=== PATIENT | male | born 1980 | race Caucasian/White ===

== ENCOUNTER 2017-09-22 06:01 | Day surgery (SDC) | payer BC ==
[~2017-09-22 06:01] MED LIST: Dextrose 5%-0.45% NaCl 1,000 ML IV SCH; Sodium Chloride 0.9% 10 ML Syringe FLUSH PRN
[2017-09-22] MEDS ORDERED: fentaNYL 100 MCG/2 ML SDV IV ONE ×3 (06:02→06:58)
[2017-09-22] MEDS ORDERED: Midazolam 1 MG/ML 2 ML SDV IV ONE ×7 (06:02→07:04)
[2017-09-22] MEDS ORDERED: fentaNYL 100 MCG/2 ML SDV ONE (06:13)
[2017-09-22] MEDS ORDERED: Midazolam 1 MG/ML 2 ML SDV ONE (06:13)
[2017-09-22 09:36] VITALS: BP 117/66
--- NOTE | 2017-09-22 13:10 | OR ---
DATE: 09/22/2017 PROCEDURE: Total colonoscopy. INSTRUMENT USED: CF-H180AL Olympus video colonoscope. PREMEDICATIONS: Fentanyl 100 mcg intravenous, Versed 4 mg intravenous. Nasal O2 cannula. The procedure was done under pulse oximetry, BP recording, and biomedical engineering supervisor. INDICATION: The patient with persistent lower abdominal pain, unexplained, and not responsive to medical measures. Recent CT of the abdomen shows normal rectal wall. Colonoscopic examination is done for detection of any polypoid lesions and removal, endoscopic hemostasis therapy if needed. DESCRIPTION OF PROCEDURE: Initial rectal exam was unremarkable. Rigid anoscopy was normal. The colonoscope was passed with ease up to the ileocecal area, photographs taken of the normal-appearing cecum, identified by landmarks of appendiceal orifice and double-bulged ileocecal folds. No bleeding was noted from any of the visualized areas at the commencement of the examination. No stricture. No vascular ectasia. No large isolated ulcerations seen. No evidence of diffuse inflammatory bowel disease in the form of friability, contact bleeding, or ulcerations. No polypoid tumor mass identified. Probing the proximal sides of folds and flexures, using adequate distention and clearing up the stool material, withdrawal of the scope was made, cecum to rectum time over 6 minutes. No bleeding was noted from any of the visualized areas at the completion of examination. IMPRESSION: Normal study. The patient tolerated the procedure well. [facility] /[id number]
== END 2017-09-22 09:25 | disposition home or self-care (01) ==
LOC: DL.ENDO 06:01
PROVIDERS: ATTEND Internal Medicine Gastroenterology
DX: R10.30 Lower abdominal pain, unspecified (principal); K21.9 Gastro-esophageal reflux disease without esophagitis; F41.1 Generalized anxiety disorder
CPT/HCPCS: 45378; J2250; J3010; J7042

== ENCOUNTER 2018-05-06 10:34 | Emergency (ER) | payer BC ==
[2018-05-06 10:45] VITALS: BP 120/86
[2018-05-06] MEDS ORDERED: Sodium Chloride 0.9% 10 ML Syringe FLUSH PRN (10:55)
[2018-05-06] MEDS ORDERED: Sodium Chloride 0.9% 1,000 ML IV ONE (11:11)
[2018-05-06 11:33] LABS: ANION GAP 14.6; CHLORIDE,CL 100 mmol/L (101-111); SODIUM,NA 137 mmol/L (135-145)
[2018-05-06] MEDS ORDERED: Iopamidol 612 MG/ML 75 ML Bottle IVPUSH ONE (12:11)
[2018-05-06] MEDS ORDERED: Dicyclomine 10 MG Cap PO ONE (12:25)
--- NOTE | 2018-05-06 14:06 | EDM.PDOC ---
ED HPI GENERAL MEDICAL PROBLEM - General Chief Complaint: Abdominal Pain Stated Complaint: ABD PAINS,FEVER [id number] Time Seen by Provider: 05/06/18 11:02 Source of Information: Reports: Patient, RN, RN Notes Reviewed History Limitations: Reports: No Limitations - History of Present Illness INITIAL COMMENTS - FREE TEXT/NARRATIVE: Patient presents to ER with complaint of fever and chills that began evening. Monday night IBS flared up. He has had diarrhea q 1 hour since Monday night. He still has appendix and gallbladder. He has had body ache, fever, chills, nausea and diarrhea. No vomiting, cough or sore throat. Onset Date: 05/03/18 Duration: Getting Worse Location: Reports: Abdomen Quality: Reports: Ache Severity: Moderate Improves with: Reports: None Worsens with: Reports: None Associated Symptoms: Reports: No Other Symptoms Abdominal Pain Score (Numeric/FACES): 4 - Related Data Allergies Allergy/AdvReac Type Severity Reaction Status Date / Time No Known Allergies Allergy Verified 05/06/18 10:39 Home Meds: Home Meds Omeprazole 1 tab PO BID 05/28/15 [History] Multivitamin [Daily Zak] 1 tab PO DAILY 09/20/17 [History] Past Medical History HEENT History: Reports: None Cardiovascular History: Reports: Syncope Other Cardiovascular History: has a heart chip monitor in place Respiratory History: Reports: None Gastrointestinal History: Reports: Chronic Diarrhea, Irritable Bowel Syndrome Genitourinary History: Reports: None Musculoskeletal History: Reports: None Neurological History: Reports: None Psychiatric History: Reports: Depression Endocrine/Metabolic History: Reports: None Hematologic History: Reports: Iron Deficiency Immunologic History: Reports: None Oncologic (Cancer) History: Reports: None Dermatologic History: Reports: None - Infectious Disease History Infectious Disease History: Reports: Chicken Pox - Past Surgical History GI Surgical History: Reports: Colonoscopy Musculoskeletal Surgical History: Reports: None Social & Family History - Family History Family Medical History: Noncontributory - Tobacco Use Smoking Status *Q: Never Smoker - Caffeine Use Caffeine Use: Reports: Energy Drinks Other Caffeine Use: occasional - Recreational Drug Use Recreational Drug Use: No ED ROS GENERAL - Review of Systems Review Of Systems: ROS reveals no pertinent complaints other than HPI. ED EXAM, GI/ABD - Physical Exam Exam: See Below Exam Limited By: No Limitations General Appearance: Alert, WD/WN, No Apparent Distress Eyes: Bilateral: Normal Appearance Ears: Normal External Exam, Normal Canal, Hearing Grossly Normal, Normal TMs Nose: Normal Inspection, Normal Mucosa, No Blood Throat/Mouth: Normal Inspection, Normal Lips, Normal Teeth, Normal Gums, Normal Oropharynx, Normal Voice, No Airway Compromise Head: Atraumatic, Normocephalic Neck: Normal Inspection, Supple, Non-Tender, Full Range of Motion Respiratory/Chest: No Respiratory Distress, Lungs Clear, Normal Breath Sounds, No Accessory Muscle Use, Chest Non-Tender Cardiovascular: Bradycardia GI/Abdominal Exam: Other (tender right lower quadrant and left lower quadrant) (Male) Exam: Deferred Rectal (Males) Exam: Deferred Back Exam: Normal Inspection, Full Range of Motion, NT Extremities: Normal Inspection, Normal Range of Motion, Non-Tender, Normal Capillary Refill, No Pedal Edema Neurological: Alert, Oriented, CN II-XII Intact, Normal Cognition, Normal Gait, Normal Reflexes, No Motor/Sensory Deficits Psychiatric: Normal Affect, Normal Mood Skin Exam: Warm, Dry, Intact, Normal Color, No Rash Lymphatic: No Adenopathy Course - Vital Signs Last Recorded V/S: Last Vital Signs Temp 97.6 F 05/06/18 10:44 Pulse 86 05/06/18 10:44 Resp 14 05/06/18 10:44 BP 120/86 05/06/18 10:44 Pulse Ox 98 05/06/18 10:44 - Orders/Labs/Meds Labs: Laboratory Tests 05/06/18 05/06/18 05/06/18 Range/Units 11:00 11:03 11:03 WBC 5.1 (5.0-10.0) 10^3/uL RBC 4.85 (4.6-6.2) 10^6/uL Hgb 14.9 (14.0-18.0) g/dL Hct 42.2 (40.0-54.0) % MCV 87.0 (80-100) fL MCH 30.7 (27.0-34.0) pg MCHC 35.3 H (33.0-35.0) g/dL Plt Count 190 (150-450) 10^3/uL Neut % (Auto) 70.1 (42.2-75.2) % Lymph % (Auto) 17.4 L (20.5-50.1) % King % (Auto) 12.1 H (2-8) % Eos % (Auto) 0.2 L (1.0-3.0) % Baso % (Auto) 0.2 (0.0-1.0) % Sodium 137 (135-145) mmol/L Potassium 3.6 (3.6-5.0) mmol/L Chloride 100 L (101-111) mmol/L Carbon Dioxide 26.0 (21.0-31.0) mmol/L Anion Gap 14.6 BUN 12 (7-18) mg/dL Creatinine 1.1 (0.6-1.3) mg/dL Est Cr Clr Drug Dosing 91.95 mL/min Estimated GFR (MDRD) > 60 BUN/Creatinine Ratio 10.90 Glucose 109 H (74-105) mg/dL Lactic Acid (0.5-2.2) mmol/L Calcium 9.3 (8.4-10.2) mg/dl Total Bilirubin 0.7 (0.2-1.0) mg/dL AST 35 (10-42) IU/L ALT 38 (10-60) IU/L Alkaline Phosphatase 44 (42-121) IU/L Total Protein 8.1 (6.7-8.2) g/dl Albumin 4.1 (3.2-5.5) g/dl Globulin 4.0 Albumin/Globulin Ratio 1.03 Amylase 75 (28-100) U/L Lipase 24 (22-51) U/L Urine Color Yellow (YELLOW) Urine Appearance Clear (CLEAR) Urine pH 6.0 (5.0-9.0) Ur Specific [place] >= 1.030 (1.005-1.030) Urine Protein 100 H (NEGATIVE) Urine Glucose (UA) Negative (NEGATIVE) Urine Ketones Trace H (NEGATIVE) Urine Occult Blood Moderate H (NEGATIVE) Urine Nitrite Negative (NEGATIVE) Urine Bilirubin Small H (NEGATIVE) Urine Urobilinogen 0.2 (0.2-1.0) mg/dL Ur Leukocyte Esterase Negative (NEGATIVE) Urine RBC 0-5 /HPF Urine WBC 0-5 (0-5/HPF) /HPF Ur Epithelial Cells Rare /HPF Urine Bacteria Few (0-FEW/HPF) /HPF Hyaline Casts Few H /LPF Granular Casts Few /LPF Urine Mucus Moderate H /LPF Urine Other 05/06/18 Range/Units 11:03 WBC (5.0-10.0) 10^3/uL RBC (4.6-6.2) 10^6/uL Hgb (14.0-18.0) g/dL Hct (40.0-54.0) % MCV (80-100) fL MCH (27.0-34.0) pg MCHC (33.0-35.0) g/dL Plt Count (150-450) 10^3/uL Neut % (Auto) (42.2-75.2) % Lymph % (Auto) (20.5-50.1) % King % (Auto) (2-8) % Eos % (Auto) (1.0-3.0) % Baso % (Auto) (0.0-1.0) % Sodium (135-145) mmol/L Potassium (3.6-5.0) mmol/L Chloride (101-111) mmol/L Carbon Dioxide (21.0-31.0) mmol/L Anion Gap BUN (7-18) mg/dL Creatinine (0.6-1.3) mg/dL Est Cr Clr Drug Dosing mL/min Estimated GFR (MDRD) BUN/Creatinine Ratio Glucose (74-105) mg/dL Lactic Acid 1.0 (0.5-2.2) mmol/L Calcium (8.4-10.2) mg/dl Total Bilirubin (0.2-1.0) mg/dL AST (10-42) IU/L ALT (10-60) IU/L Alkaline Phosphatase (42-121) IU/L Total Protein (6.7-8.2) g/dl Albumin (3.2-5.5) g/dl Globulin Albumin/Globulin Ratio Amylase (28-100) U/L Lipase (22-51) U/L Urine Color (YELLOW) Urine Appearance (CLEAR) Urine pH (5.0-9.0) Ur Specific [place] (1.005-1.030) Urine Protein (NEGATIVE) Urine Glucose (UA) (NEGATIVE) Urine Ketones (NEGATIVE) Urine Occult Blood (NEGATIVE) Urine Nitrite (NEGATIVE) Urine Bilirubin (NEGATIVE) Urine Urobilinogen (0.2-1.0) mg/dL Ur Leukocyte Esterase (NEGATIVE) Urine RBC /HPF Urine WBC (0-5/HPF) /HPF Ur Epithelial Cells /HPF Urine Bacteria (0-FEW/HPF) /HPF Hyaline Casts /LPF Granular Casts /LPF Urine Mucus /LPF Urine Other Meds: Medications Discontinued Medications Generic Name Dose Route Start Last Admin Trade Name Freq PRN Reason Stop Dose Admin Dicyclomine HCl 20 mg 05/06/18 12:25 05/06/18 12:41 Bentyl PO 05/06/18 12:26 20 mg ONETIME ONE Administration Sodium Chloride 1,000 mls @ 999 mls/hr 05/06/18 11:11 05/06/18 11:19 Normal Saline IV 05/06/18 12:11 999 mls/hr .BOLUS ONE Administration Iopamidol 75 ml 05/06/18 12:11 05/06/18 12:23 Isovue-300 (61%) IVPUSH 05/06/18 12:12 75 ml ONETIME ONE Administration Sodium Chloride 10 ml 05/06/18 10:55 05/06/18 11:26 Saline Flush FLUSH 10 ml ASDIRECTED PRN Administration Keep Vein Open Departure - Departure Time of Disposition: 14:04 Disposition: Home, Self-Care 01 Condition: Fair Clinical Impression: Colitis Irritable bowel syndrome Qualifiers: Irritable bowel syndrome type: with diarrhea Qualified Code(s): K58.0 - Irritable bowel syndrome with diarrhea - Discharge Information *PRESCRIPTION DRUG MONITORING PROGRAM REVIEWED*: No *COPY OF PRESCRIPTION DRUG MONITORING REPORT IN PATIENT DARREN: No Instructions: Food Choices to Help Relieve Diarrhea, Adult, Diet for Irritable Bowel Syndrome, Abdominal Pain, Adult, [id number], Colitis, Irritable Bowel Syndrome, Adult Referrals: PCP,None [Ordering Only Provider] - Forms: ED Department Discharge Additional Instructions: RX: Prednison, Dicyclomine Drink plenty of water Follow up with Dr. Mera May use imodium over the counter as directed for loose stools
== END 2018-05-06 14:19 | disposition home or self-care (01) ==
LOC: DL.ED 10:34
DX: K58.0 Irritable bowel syndrome with diarrhea (principal)
CPT/HCPCS: 36415; 74177; 80053; 81001; 82150; 83605; 83690; 85025; 87045; 87493; 87899; 96360; 99284; A9270; J7030; J7050; Q9967; 87046